=== PATIENT | female | born 1970 | race Caucasian/White ===

== ENCOUNTER 2019-09-24 15:28 | Outpatient (CLI) | payer OTHER ==
[~2019-09-24 15:28] MED LIST: DIPH-423 PO; FLUT16SP2 NS
== END 2019-09-24 23:59 | disposition home or self-care (01) ==
LOC: RAD 15:28
PROVIDERS: ATTEND Family Medicine
DX: Z01.818 Encounter for other preprocedural examination (principal); R13.10 Dysphagia, unspecified; N95.1 Menopausal and female climacteric states; K21.9 Gastro-esophageal reflux disease without esophagitis; B00.1 Herpesviral vesicular dermatitis; R10.12 Left upper quadrant pain; R03.0 Elevated blood-pressure reading, without diagnosis of hypertension; K58.1 Irritable bowel syndrome with constipation; N39.0 Urinary tract infection, site not specified; E78.5 Hyperlipidemia, unspecified; R19.5 Other fecal abnormalities; J01.90 Acute sinusitis, unspecified; J45.909 Unspecified asthma, uncomplicated; N61.0 Mastitis without abscess; Z00.5 Encounter for examination of potential donor of organ and tissue; Z80.9 Family history of malignant neoplasm, unspecified
CPT/HCPCS: 74230